=== PATIENT | female | born 1985 | race African-American/Black ===

== ENCOUNTER 2019-12-04 17:54 | Emergency (ER) | payer OTHER ==
[~2019-12-04] VITALS: Ht 172.7 cm; Wt 72.6 kg
[2019-12-04] MEDS ORDERED: Tylenol #3 tab (300mg/30mg) ORAL ONE (19:15)
--- NOTE | 2019-12-04 19:28 | NUR ---
HAND-OFF: Report given to Coy Gibbs RN.
--- NOTE | 2019-12-04 19:30 | NUR ---
ED Nurse Note: RECEIVED PATIENT FROM [facility]. PATIENT RESTING IN BED WITH NO ACUTE DISTRESS. AO4. NAD. VSS. FAMILY AT BEDSIDE.
--- NOTE | 2019-12-04 19:52 | Diagnostic Imaging Report ---
Indication: Pain, trauma Technique: 3 views of the ankle Comparison: none Findings: There is an oblique/vertical comminuted fracture of the distal fibula. Fracture fragments are distracted by about 8 mm. There is a transverse fracture, minimally displaced and distracted, of the medial malleolus. There is also a fracture of the posterior malleolus. No definite dislocations. Impression: Positive for trimalleolar fracture
--- NOTE | 2019-12-04 20:58 | Emergency Room Report ---
History of Present Illness General Chief Complaint: Lower Extremity Injury Source: Patient (Sarah Jfafe) Present Illness HPI 34-year-old female with no significant past medical history here complaining of left ankle pain that started earlier today after falling off of a skateboard. Patient rating pain 10 out of 10 with radiation. Denies tingling and numbness. Has been applying ice minimal relief. Patient ankle appears to be swollen and obvious. Fracture on both sides noted. Denies any calf tenderness, chest pain, shortness of breath, palpitation, no other associated symptoms. Denies at this time. Denies head injury, loss of consciousness, and all other injuries. Patient reports that she was chasing her while on the skateboard and she twisted her ankle and fell off of a skateboard. (Sarah Jaffe) Allergies: Coded Allergies: No Known Allergies (Unverified , 12/04/19) Patient History Past Medical History: see triage record Past Surgical History: none Pertinent Family History: none Last Menstrual Period: 11/16/2019 Now: No Immunizations: UTD Reviewed Nursing Documentation: PMH: Agreed; PSxH: Agreed (Sarah Jaffe) Nursing Documentation-PMH Past Medical History: No Stated History (Sarah Jaffe) Review of Systems All Other Systems: negative except mentioned in HPI (Sarah Jaffe) Physical Exam Vital Signs Date Time Temp Pulse Resp B/P (MAP) Pulse Ox O2 Delivery O2 Flow Rate FiO2 12/04/19 19:09 98.8 110 18 150/92 (111) 96 Room Air Sp02 EP Interpretation: reviewed, normal General Appearance: no apparent distress, alert, GCS 15, non-toxic Head: normocephalic, atraumatic Eyes: bilateral eye normal inspection, bilateral eye PERRL ENT: hearing grossly normal, normal pharynx, no angioedema, normal voice Neck: full range of motion, supple, supple/symm/no masses Respiratory: chest non-tender, lungs clear, normal breath sounds, no rhonchi, no wheezing, speaking full sentences Cardiovascular #1: regular rate, rhythm, no edema Cardiovascular #2: 2+ dorsalis pedis (R), 2+ dorsalis pedis (L) Gastrointestinal: soft Rectal: deferred Genitourinary: no CVA tenderness Musculoskeletal: back normal, no calf tenderness, tender - Left lateral and medial malleolus, swelling - Left ankle Neurologic: alert, motor strength/tone normal, oriented x3, sensory intact, responsive, speech normal Psychiatric: judgement/insight normal, memory normal, mood/affect normal, no suicidal/homicidal ideation Skin: no rash Lymphatic: no adenopathy (Sarah Jaffe) Procedures Splinting Splinting : Consent: Verbal Location: Left ankle Hand-Made Type: plaster Splint: poserior short Pre-Proc Neuro Vasc Exam: normal Post-Proc Neuro Vasc Exam: normal Patient Tolerated: Well Complications: None (Sarah Jaffe) Splinting : Consent: Emergent Hand-Made Type: plaster Splint: Posterior slab with sugar tong Pre-Proc Neuro Vasc Exam: normal Post-Proc Neuro Vasc Exam: normal Patient Tolerated: Well Complications: None (Fer Truong MD) Medical Decision Making PA Attestation All diagnoses and treatment plans were reviewed and discussed with my supervising physician Dr. Truong (Sarah Jaffe) PA Attestation I participated in the treatment of this patient along with ABILIO Parkinson Briefly, this a 34-year-old female who fell while skateboarding with her family earlier today. She sustained a closed partially displaced trimalleolar fracture of the left ankle. Patient was neuro vascularly intact. She was placed in a posterior slab with sugar tong splint to follow-up with orthopedic surgery likely requiring surgical repair. Tolerated splinting well. She was discharged with pain medication anti-inflammatories. Given crutches and able to ambulate on the emergency department under her own power. We will follow-up with orthopedic surgery as an outpatient. Discussed reasons to return to the emergency department. She understands and agrees with this treatment plan. (Fer Truong MD) Diagnostic Impression: Primary Impression: Trimalleolar fracture of ankle, closed ER Course 34-year-old female with no significant past medical history here complaining of left ankle pain that started earlier today after falling off of a skateboard. Patient rating pain 10 out of 10 with radiation. Denies tingling and numbness. Has been applying ice minimal relief. Patient ankle appears to be swollen and obvious. Fracture on both sides noted. Denies any calf tenderness, chest pain, shortness of breath, palpitation, no other associated symptoms. Denies at this time. Denies head injury, loss of consciousness, and all other injuries. Patient reports that she was chasing her while on the skateboard and she twisted her ankle and fell off of a skateboard. Ddx considered but are not limited to: ankle sprain, ankle strain, ankle fracture, ankle contusion Vital signs: are WNL, pt. is afebrile H&PE are most consistent with: Trimalleolar fracture of left ankle, closed ORDERS: ankle x-ray, [place], ibuprofen 800 ED INTERVENTIONS: Tylenol 3, ibuprofen 800, morphine 4 mg, Zofran 4 mg, splinting, and minimal ankle reduction done by , crutches were provided. DISCHARGE: At this time pt. is stable for d/c to home. Will provide printed patient care instructions, and any necessary prescriptions. Care plan and follow up instructions have been discussed with the patient prior to discharge. I gave patient a list of urgent care and also go option to go to either his [facility] or [facility] in case she cannot find an legal billing specialist to follow her up within the next 24 to 48 hours. Patient also to contact her primary care. Patient is aware that we will need surgery of the ankle. Patient was stable at time of discharge. (Sarah Jaffe) Other X-Ray Diagnostic Results Other X-Ray Diagnostic Results : X-Ray ordered: Left ankle # of Views/Limited Vs Complete: 3 View Indication: Pain EP Interpretation: Yes PA Xray: Interpretation reviewed, by supervising MD, and agrees with findings. Interpretation: other - Trimalleolar fracture of left ankle with subluxation Impression: Other - Trimalleolar fracture of left ankle with subluxation Electronically Signed by: Sarah Soto PA-C (Sarah Jaffe) Last Vital Signs Date Time Temp Pulse Resp B/P (MAP) Pulse Ox O2 Delivery O2 Flow Rate FiO2 12/04/19 19:09 98.8 110 18 150/92 (111) 96 Room Air (Sarah Jaffe) Disposition: HOME, SELF-CARE Condition: Stable Scripts Ibuprofen (Ibu) 800 Mg Tablet 800 MG PO TID, #30 TAB Prov: Sarah Jaffe 12/04/19 Hydrocodone Bit/Acetaminophen 10-325* (NORCO 10-325*) 1 Each Tablet 1 TAB ORAL Q6H PRN for For Pain for 3 Days, #12 TAB 0 Refills PRN PAIN Prov: Sarah Jaffe 12/04/19 Referrals: [facility]ERR[facility] (PCP) Patient Instructions: Ankle Fracture With [facility] Additional Instructions: Follow-up with legal billing specialist, take medication as directed, if worsening symptoms return to emergency room. You need to be sent to orthopedic surgeon for surgery. Sarah Jaffe Dec 04, 2019 20:58 Fer Truong MD Dec 04, 2019 22:04
[2019-12-04] MEDS ORDERED: NORCO 10-325 T1 EACH ORAL (20:59)
[2019-12-04] MEDS ORDERED: IBU800 MG PO (20:59)
[2019-12-04] MEDS ORDERED: Morphine Sulfate 2mg/ml Inj(IV/IM USE ONLY) IM ONE (21:00)
--- NOTE | 2019-12-04 21:00 | NUR ---
ED Nurse Note: PATIENT MEDICATED; TOLERATED WELL; REPORTS RELIEF OF PAIN . ERMD AT BEDSIDE FOR SPLINT.
[2019-12-04 21:35] VITALS: BP 150/92
--- NOTE | 2019-12-04 21:35 | NUR ---
ER DISCHARGE NOTE: Patient is cleared to be discharged per ERMD, pt is aox4, on room air, with stable vital signs. accompanied by family member. provided pt with crutches; teaching and return demonstration on crutch walk complete. pt was given dc and prescription instructions, pt was able to verbalize understanding, pt id band removed. pt is able to ambulate with steady gait. pt took all belongings.
== END 2019-12-05 02:08 | disposition home or self-care (01) ==
LOC: EMR 19:34
DX: S82.852A Displaced trimalleolar fracture of left lower leg, initial encounter for closed fracture (principal); V00.131A Fall from skateboard, initial encounter; Y92.9 Unspecified place or not applicable
CPT/HCPCS: 29515; 73610; 96372; J2270; J2405; Z7502; 99283